=== PATIENT | female | born 1940 | race Caucasian/White ===

== ENCOUNTER → 2018-07-12 | Emergency (ER) | payer MEDICARE, OTHER ==
[~2018-07-12] VITALS: Ht 157.5 cm; Wt 85.0 kg
[2018-07-12 10:41] VITALS: BP 113/51
== END | disposition home or self-care (01) ==
LOC: ER 08:46
DX: S09.90XA Unspecified injury of head, initial encounter (principal); S70.02XA Contusion of left hip, initial encounter; E11.9 Type 2 diabetes mellitus without complications; Z91.048 Other nonmedicinal substance allergy status; Y93.89 Activity, other specified; W18.39XA Other fall on same level, initial encounter; Y92.89 Other specified places as the place of occurrence of the external cause; Y99.8 Other external cause status
CPT/HCPCS: 70450; 72125; 73502; 99284

== ENCOUNTER 2020-11-26 07:53 | Day surgery (SDC) | payer MEDICARE, BC ==
[2020-11-25 12:55] LABS: BASOPHILS % (AUTO) 0.5 % (0-1); EOSINOPHILS # (AUTO) 0.1 X10'3 (0-0.9); EOSINOPHILS % (AUTO) 2.1 % (0-6); HEMATOCRIT 33.2 % (35.0-45.0); HEMOGLOBIN 11.4 g/dl (12.0-16.0); LYMPHOCYTES # (AUTO) 1.7 X10'3 (1.1-4.8); LYMPHOCYTES % (AUTO) 24.1 % (21-51); MEAN CORPUSCULAR HEMOGLOBIN 33.8 PG (27.0-31.0); MEAN CORPUSCULAR HGB CONC 34.2 g/dL (33.0-36.5); MEAN CORPUSCULAR VOLUME 98.8 FL (78-98); MEAN PLATELET VOLUME 7.4 FL (7.4-10.4); MONOCYTES # (AUTO) 0.6 X10'3 (0-0.9); MONOCYTES % (AUTO) 8.1 % (2-12); NEUTROPHILS # (AUTO) 4.6 X10'3 (1.8-7.7); NEUTROPHILS % (AUTO) 65.2 % (42-75); PLATELET COUNT 211 X10'3 (140-440); RED BLOOD COUNT 3.36 X10'6 (4.20-5.60); RED CELL DISTRIBUTION WIDTH 12.8 % (11.5-14.5)
[2020-11-25 13:08] LABS: ALBUMIN 3.4 G/DL (3.4-5.0); ANION GAP 7 (8-16); BLOOD UREA NITROGEN 11 MG/DL (7-18); CALCIUM 8.8 MG/DL (8.5-10.1); CHLORIDE 107 MMOL/L (99-107); CREATININE 0.61 MG/DL (0.40-0.90); GLUCOSE 105 MG/DL (70-104); POTASSIUM 3.3 MMOL/L (3.5-5.1); SODIUM 144 MMOL/L (135-145); TOTAL CARBON DIOXIDE 30.3 MMOL/L (24-32); eGFR > 90 ML/MIN
[~2020-11-26] VITALS: Ht 160 cm; Wt 85.3 kg
[2020-11-26] MEDS ORDERED: normal saline 1000ml 1,000 ML IV SCH (08:10)
[2020-11-26] MEDS ORDERED: MIDAZolam 1mg/ml 10ml vial IV ONE (08:10)
[2020-11-26] MEDS ORDERED: morphine 10mg/ml inj. IV ONE (08:10)
[2020-11-26] MEDS ORDERED: amiodarone 150mg/dext, iso-os 100 ML IV ONE (08:10)
[2020-11-26] MEDS ORDERED: diphenhydrAMINE 25mg capsule PO ONE (08:10)
[2020-11-26] MEDS ORDERED: LORazepam 0.5 MG tablet PO ONE (08:10)
[2020-11-26] MEDS ORDERED: atropine 0.1mg/ml 10ml syringe IV ONE (08:10)
[2020-11-26] MEDS ORDERED: TRIA1TAB3 PO (08:53)
[2020-11-26] MEDS ORDERED: IRBE150T51 PO (08:54)
[2020-11-26] MEDS ORDERED: POTA10TA19 PO (08:54)
[2020-11-26] MEDS ORDERED: MAGN400C PO (08:54)
[2020-11-26] MEDS ORDERED: LORA-983 PO (08:54)
[2020-11-26] MEDS ORDERED: FURO-149 PO (08:54)
[2020-11-26] MEDS ORDERED: ACET-75 PO (08:54)
[2020-11-26 09:00] VITALS: BP 146/71
== END 2020-11-26 10:00 | disposition home or self-care (01) ==
LOC: SSTAY O 07:53
PROVIDERS: ATTEND Internal Medicine Cardiovascular Disease
DX: I48.0 Paroxysmal atrial fibrillation (principal); Z53.8 Procedure and treatment not carried out for other reasons; G47.30 Sleep apnea, unspecified; I11.0 Hypertensive heart disease with heart failure; I50.30 Unspecified diastolic (congestive) heart failure; E11.40 Type 2 diabetes mellitus with diabetic neuropathy, unspecified; M19.90 Unspecified osteoarthritis, unspecified site; J45.909 Unspecified asthma, uncomplicated; E78.49 Other hyperlipidemia; E66.9 Obesity, unspecified; Z68.31 Body mass index [BMI] 31.0-31.9, adult; Z79.899 Other long term (current) drug therapy; Z88.8 Allergy status to other drugs, medicaments and biological substances; Z90.49 Acquired absence of other specified parts of digestive tract; Z98.890 Other specified postprocedural states; Z87.891 Personal history of nicotine dependence; Z83.3 Family history of diabetes mellitus; Z80.8 Family history of malignant neoplasm of other organs or systems
CPT/HCPCS: 36415; 80048; 85025; 85610; 93005

== ENCOUNTER 2021-01-23 10:33 | Day surgery (SDC) | payer MEDICARE, BC ==
[~2021-01-23] VITALS: Ht 160 cm; Wt 80.1 kg
[2021-01-23] VITALS (16 sets, daily range): BP systolic 90–138; BP diastolic 46–74
[~2021-01-23 10:33] MED LIST: ACET-75 PO; FURO-149 PO; IRBE150T51 PO; LORA-983 PO; MAGN400C PO; POTA10TA19 PO; TRIA1TAB3 PO
[2021-01-23] MEDS ORDERED: RIVA20TA (11:11)
[2021-01-23] MEDS ORDERED: CARV-50 PO (11:11)
[2021-01-23] MEDS ORDERED: FLEC100T PO (11:11)
[2021-01-23] MEDS ORDERED: FLEC50TA28 PO (11:12)
[2021-01-23] MEDS ORDERED: MIDAZolam 1mg/ml 10ml vial IV ONE (11:15)
[2021-01-23] MEDS ORDERED: atropine 0.1mg/ml 10ml syringe IV ONE (11:15)
[2021-01-23] MEDS ORDERED: LORazepam 0.5 MG tablet PO ONE (11:15)
[2021-01-23] MEDS ORDERED: morphine 10mg/ml inj. IV ONE (11:15)
[2021-01-23 11:29] LABS: BASOPHILS % (AUTO) 0.8 % (0-1); EOSINOPHILS # (AUTO) 0.1 X10'3 (0-0.9); EOSINOPHILS % (AUTO) 1.7 % (0-6); HEMATOCRIT 33.3 % (35.0-45.0); HEMOGLOBIN 11.2 g/dl (12.0-16.0); LYMPHOCYTES # (AUTO) 2.2 X10'3 (1.1-4.8); MEAN CORPUSCULAR HEMOGLOBIN 32.9 PG (27.0-31.0); MEAN CORPUSCULAR HGB CONC 33.7 g/dL (33.0-36.5); MEAN CORPUSCULAR VOLUME 97.6 FL (78-98); MEAN PLATELET VOLUME 6.9 FL (7.4-10.4); MONOCYTES # (AUTO) 0.5 X10'3 (0-0.9); MONOCYTES % (AUTO) 8.3 % (2-12); NEUTROPHILS # (AUTO) 3.5 X10'3 (1.8-7.7); NEUTROPHILS % (AUTO) 55.2 % (42-75); PLATELET COUNT 269 X10'3 (140-440); RED BLOOD COUNT 3.41 X10'6 (4.20-5.60); RED CELL DISTRIBUTION WIDTH 13.4 % (11.5-14.5); WHITE BLOOD COUNT 6.4 X10'3 (4.5-11.0)
[2021-01-23] MEDS ORDERED: diphenhydrAMINE 25mg capsule PO ONE (11:50)
[2021-01-23] MEDS ORDERED: amiodarone 150mg/dext, iso-os 100 ML IV ONE (11:50)
[2021-01-23 12:46] LABS: ALBUMIN 3.5 G/DL (3.4-5.0); ANION GAP 10 (8-16); BLOOD UREA NITROGEN 14 MG/DL (7-18); BUN/CREATININE RATIO 18.9 (6.6-38.0); CALCIUM 9.4 MG/DL (8.5-10.1); CHLORIDE 106 MMOL/L (99-107); CREATININE 0.74 MG/DL (0.40-0.90); GLUCOSE 119 MG/DL (70-104); POTASSIUM 4.3 MMOL/L (3.5-5.1); SODIUM 144 MMOL/L (135-145); TOTAL CARBON DIOXIDE 27.7 MMOL/L (24-32); eGFR 76 ML/MIN
== END 2021-01-23 16:00 | disposition home or self-care (01) ==
LOC: SSTAY O 10:33
PROVIDERS: ATTEND Internal Medicine Cardiovascular Disease
DX: I48.91 Unspecified atrial fibrillation (principal); I45.10 Unspecified right bundle-branch block; G47.33 Obstructive sleep apnea (adult) (pediatric); I11.0 Hypertensive heart disease with heart failure; I50.30 Unspecified diastolic (congestive) heart failure; E11.9 Type 2 diabetes mellitus without complications; E78.5 Hyperlipidemia, unspecified; Z79.899 Other long term (current) drug therapy
CPT/HCPCS: 36415; 80048; 85025; 92960; 93005; J2250; J2270; Q0163